=== PATIENT | female | born 1980 | race Caucasian/White ===

== ENCOUNTER → 2016-06-04 | Outpatient (CLI) | payer OTHER ==
[~2016-06-04] MED LIST: LEVO125T5 PO
== END | disposition home or self-care (01) ==
LOC: C.LABBFT 14:55
PROVIDERS: ATTEND Nurse Practitioner
DX: E03.9 Hypothyroidism, unspecified (principal)

== ENCOUNTER → 2016-09-29 | Outpatient (CLI) | payer OTHER ==
[~2016-09-29] MED LIST changes: +LEVO125T4 PO; -LEVO125T5 PO
[2016-09-29 18:03] LABS: BLOOD UREA NITROGEN 9 mg/dl (7-18); BUN/CREATININE RATIO 10.5 (10-20); CALCIUM 9.4 mg/dl (8.5-10.1); CARBON DIOXIDE 29 mmol/L (21-32); CHLORIDE 104 mmol/L (98-107); CHOLESTEROL 185 mg/dl (0-200); CREATININE 0.88 mg/dl (0.60-1.20); GLUCOSE 85 mg/dl (70-99); SODIUM 138 mmol/L (136-145); TRIGLYCERIDES 153 mg/dl (0-150); VERY LOW DENSITY LIPOPROT CALC 31 mg/dl
[2016-09-29 18:13] LABS: CHOLESTEROL/HDL RATIO 5.8; HDL CHOLESTEROL 32 mg/dl; LDL CHOLESTEROL CALCULATED 122 mg/dl
== END | disposition home or self-care (01) ==
LOC: C.LABBFT 08:43
PROVIDERS: ATTEND Nurse Practitioner
DX: Z00.00 Encounter for general adult medical examination without abnormal findings (principal); E03.9 Hypothyroidism, unspecified

== ENCOUNTER → 2016-11-11 | Outpatient (CLI) | payer OTHER | END | disposition home or self-care (01) | LOC: C.LABBFT 15:06 | PROVIDERS: ATTEND Nurse Practitioner | DX: E03.9 Hypothyroidism, unspecified (principal) ==

== ENCOUNTER → 2017-02-24 | Outpatient (CLI) | payer OTHER ==
[~2017-02-24] MED LIST changes: -LEVO125T4 PO; +LEVO125T5 PO
== END | disposition home or self-care (01) ==
LOC: C.LABBFT 14:56
PROVIDERS: ATTEND Nurse Practitioner
DX: E03.9 Hypothyroidism, unspecified (principal)

== ENCOUNTER 2017-02-27 14:09 | Emergency (ER) | payer OTHER ==
[~2017-02-27] VITALS: Ht 157.5 cm; Wt 94.9 kg
[2017-02-27 14:14] VITALS: TEMP 36.4; Ht 157.5 cm; Wt 94.9 kg
[2017-02-27] MEDS ORDERED: FLUO20CA34 PO (14:32)
--- NOTE | 2017-02-27 14:41 | DIAGNOSTIC IMAGING REPORT ---
RIGHT FOOT 3 VIEWS HISTORY: R dorsal foot pain COMPARISON: None. FINDINGS: There is no fracture or dislocation. Soft tissues are unremarkable. No radiopaque foreign bodies. IMPRESSION: No fractures. Electronically signed by: Donn Kimball M.D. 02/27/2017 2:39 PM Dictated Date/Time: 02/27/2017 2:39 PM
--- NOTE | 2017-02-27 15:20 | EMERGENCY ROOM VISIT NOTE ---
History First contact with patient: 14:17 Chief Complaint: FOOT PAIN Stated Complaint: PAIN ON TOP OF R FOOT GOING UP LEG History of Present Illness The patient is a 36 year old female who presents to the Emergency Room with complaints of pain in the top of her right foot. The patient reports that she has had this pain for the past 3 days. She denies any known injury to the foot. The patient is on her feet all day long at work. She does were [employer]. She denies any wearing of high heeled shoes. She denies any prior history of right foot injuries, and currently rates her discomfort a 10 out of 10 with weightbearing. She has tried ice, ibuprofen and Tylenol without relief , reporting worsening pain with persistent weightbearing. She reports that the pain does slightly extend into the front of the ankle and leg. She denies any calf, knee or thigh pain. She also denies any lower back pain. Review of Systems 10 system review was performed and was negative except for pertinent positives and negatives as indicated in history of present illness Past Medical/Surgical History Medical Problems: (1) HYPOTHYROIDISM NOS (2) TOBACCO USE DISORDER Surgical Problems: (1) S/P tubal ligation Family History FH: cancer FH: diabetes mellitus FH: hypertension Social History Smoking Status: Current Every Day Smoker Alcohol Use: occasionally Marital Status: Occupation Status: employed Current/Historical Medications Scheduled Fluoxetine Hcl (Prozac), 20 MG PO DAILY Levothyroxine Sodium (Levothyroxine Sodium), 125 MCG PO DAILY Physical Exam Vital Signs Date Time Temp Pulse Resp B/P (MAP) Pulse Ox O2 Delivery O2 Flow Rate FiO2 02/27/17 14:14 36.4 76 18 133/92 96 Room Air Physical Exam CONSTITUTIONAL: Obese female, alert and oriented X 3 with positive affect. Patient does not appear in any acute distress while sitting on the bed. HEENT: Normocephalic, atraumatic. Pupils equal, round and reactive. NECK: Full active range of motion without discomfort. MUSCULOSKELETAL: Examination of the right foot does not show any obvious soft tissue edema, ecchymosis or erythema. No warmth to palpation over the dorsal midfoot. She is tender through the dorsiflexors over the dorsum of the foot and anterior ankle region. No focal tenderness over the plantar foot, calcaneus or Achilles tendon. Pedal pulses are intact. INTEGUMENTARY: No rash or other significant dermatologic conditions noted. NEUROLOGIC: Right foot and toes are sensory intact. Medical Decision & Procedures ER Provider Diagnostic Interpretation: My interpretation of right foot x-rays does not show any obvious fractures or dislocations. Radiologist report is as follows: RIGHT FOOT 3 VIEWS HISTORY: R dorsal foot pain COMPARISON: None. FINDINGS: There is no fracture or dislocation. Soft tissues are unremarkable. No radiopaque foreign bodies. IMPRESSION: No fractures. ED Course Patient history and physical exam were performed. Nurse's notes were reviewed. Vital signs were reviewed and were normal. X-rays were reviewed and were also normal. The patient was advised that her history and clinical exam findings are most consistent with an ankle tendinitis. The patient reports that she does have crutches at home. She was encouraged to remain nonweightbearing over the next several days until symptoms improve. She was encouraged to continue with intermittent ice application. She may alternate ibuprofen and Tylenol as needed for additional pain relief. The patient reports that she has also been having problems sleeping at nighttime. She was instructed to try taking Benadryl 25-50 mg at bedtime. She was instructed to follow-up with orthopedics if her foot pain persists, and follow-up with her PCP as needed for any problems with persistent insomnia. The patient voiced understanding of all discharge instructions, was happy with plan of care, and rated her discomfort a 5 out of 10 at the conclusion of my exam. Medical Decision Medication Reconcilliation Current Medication List: was personally reviewed by me Blood Pressure Screening Patient's blood pressure: Normal blood pressure Impression Primary Impression: Right ankle tendonitis Departure Information Referrals Emilia Baxter, C.R.N.P. (PCP) Patient Instructions [facility]
[2017-02-27 15:21] VITALS: BP 138/78; PULSE 78; O2SAT 98
== END 2017-02-27 15:24 | disposition home or self-care (01) ==
LOC: C.EDB 14:10 → C.EDD 15:24
DX: M77.9 Enthesopathy, unspecified (principal); E03.9 Hypothyroidism, unspecified; F17.200 Nicotine dependence, unspecified, uncomplicated; Z80.9 Family history of malignant neoplasm, unspecified; Z83.3 Family history of diabetes mellitus; Z82.49 Family history of ischemic heart disease and other diseases of the circulatory system

== ENCOUNTER → 2017-05-28 | Outpatient (CLI) | payer OTHER ==
[~2017-05-28] MED LIST changes: +FLUO20CA34 PO
== END | disposition home or self-care (01) ==
LOC: C.LABSPEC 17:41
PROVIDERS: ATTEND Physician Assistant
DX: R10.2 Pelvic and perineal pain (principal)

== ENCOUNTER → 2017-05-28 | Outpatient (CLI) | payer OTHER | END | disposition home or self-care (01) | LOC: C.PAPS 18:30 | PROVIDERS: ATTEND Physician Assistant | DX: Z12.4 Encounter for screening for malignant neoplasm of cervix (principal) ==